=== PATIENT | female | born 1985 | race Caucasian/White ===

== ENCOUNTER 2023-02-07 17:31 | Emergency (ER) | payer BC ==
[2023-02-07] MEDS ORDERED: FAMOTIDINE 20 MG/2 ML VIAL IV ONE (17:57)
[2023-02-07] MEDS ORDERED: HYDROMORPHONE HCL 1 MG/ML INJ ONE ×2 (17:57→18:36)
[2023-02-07] MEDS ORDERED: NA CHLORIDE 0.9% 1,000 ML ONE (17:57)
[2023-02-07] MEDS ORDERED: ONDANSETRON 4 MG/2 ML VIAL ONE ×2 (17:57→19:50)
[2023-02-07 18:05] LABS: Absolute Lymphocytes (CBC) 3.4 K/uL (0.7-4.9); Hematocrit 43.5 % (36.0-45.0); Lymphocytes % 32.9 % (15.3-44.8); MCV 86.6 fL (80-100); MPV 7.5 fL (7.6-11.3); RBC Red Blood Cell Count 5.03 M/uL (3.86-4.86)
[2023-02-07 18:06] LABS: Specific Gravity 1.015 (1.005-1.030)
[2023-02-07 18:15] LABS: Specific Gravity 1.015 (1.005-1.030); Urine Bacteria None Seen /HPF (<20); Urine Bilirubin NEGATIVE (Negative); Urine Blood Negative (Negative); Urine Clarity Extremely Turbid (Clear); Urine Color Colorless (Yellow); Urine Glucose NEGATIVE (Negative); Urine Mucus Slight /HPF (None Seen); Urine Protein NEGATIVE (Negative); Urine Urobilinogen Normal (Normal)
[2023-02-07 18:25] LABS: Albumin 3.6 g/dL (3.4-5.0); Bilirubin Total 0.2 mg/dL (0.2-1.0); Potassium 3.4 mEq/L (3.5-5.1); Protein, Total 7.8 g/dL (6.4-8.2)
[2023-02-07] MEDS ORDERED: KETOROLAC 30 MG/ML INJ ONE (18:48)
--- NOTE | 2023-02-07 18:59 | RAD REPORT ---
EXAM DESCRIPTION: CT - Stone Protocol - 02/07/2023 6:50 pm CLINICAL HISTORY: Flank pain. FLANK PAIN COMPARISON: <Comparisons> TECHNIQUE: Axial images were obtained without oral or IV contrast. Lack of contrast limits solid org an and vascular assessment. The [id number] spans the entirety of the system partially obscuring uppermost abdomen and lung bases. Coronal reformatted images were obtained and reviewed. All CT scans are performed using dose optimization technique as appropriate and may include automated exposure control or mA/KV adjustment according to patient size. FINDINGS: The lower lung jerez are clear. Imaged portions of the liver and spleen show no suspicious findings on non-contrast imaging. The panc reas and adrenal glands are normal. No pathologic lymphadenopathy in the abdomen or pelvis. Cholelith iasis. 4 mm stone is seen at the right UVJ resulting in moderate right hydronephrosis and hydroureter. Addit ional bilateral nephrolithiasis seen. No bowel obstruction, free air, free fluid or abscess. Normal appendix noted. No significant bony abnormality. IMPRESSION: 4 mm stone right UVJ with moderate right hydronephrosis and hydroureter. Additional bilateral nephrolithiasis. Cholelithiasis.
[2023-02-07] MEDS ORDERED: MAGNESIUM SULFATE 1 gm IVPB 1 GM/100 ML BAG IV ONE (19:24)
[2023-02-07] MEDS ORDERED: TAMSULOSIN 0.4 MG SR CAP ONE (19:24)
[2023-02-07] MEDS ORDERED: CEFTRIAXONE 1000 MG/VIAL ONE (19:24)
--- NOTE | 2023-02-07 19:37 | EDPHYS ---
Physician Documentation [facility] Name: Mica Gerardo Age: 37 yrs Sex: Female : 1985 Arrival Date: 02/07/2023 Time: 17:31 Bed 20 Private MD: ED Physician Jack Alba HPI: 02/07 17:50 This 37 yrs old Female presents to ER via Ambulatory with complaints of Abdominal Pain. cp Historical: - Allergies: 17:58 No Known Allergies; ss - Immunization history:: Client reports having NOT received the Covid vaccine. - Social history:: Smoking status: Patient reports the use of cigarette tobacco products, smokes one-half pack cigarettes per day. ROS: 18:00 Constitutional: Negative for body aches, chills, fever. cp 18:00 : Positive for flank pain, of the right flank. cp 18:00 Eyes: Negative for injury, pain, redness, and discharge. cp 18:00 Cardiovascular: Negative for chest pain, palpitations. 18:00 Respiratory: Negative for cough, shortness of breath, wheezing. 18:00 Abdomen/GI: Positive for abdominal pain, nausea, of the posterior aspect of right lateral abdomen, anterior aspect of right lateral abdomen, right upper quadrant and right lower quadrant, Negative for vomiting, diarrhea, constipation. 18:00 Neuro: Negative for altered mental status, dizziness, headache, weakness. 18:00 All other systems are negative. Exam: 18:05 Constitutional: The patient appears in no acute distress, alert, awake, non-toxic, well cp developed, well nourished, in obvious pain, uncomfortable. 18:05 Head/Face: Normocephalic, atraumatic. cp 18:05 Eyes: Periorbital structures: appear normal, Conjunctiva: normal, no exudate, no injection, Sclera: no appreciated abnormality, Lids and lashes: appear normal, bilaterally. 18:05 ENT: External ear(s): are unremarkable, Nose: is normal, Mouth: Lips: moist, Oral mucosa: moist, Posterior pharynx: is normal, airway is patent, no erythema, no exudate. 18:05 Neck: ROM/movement: is normal, is supple, without pain, no range of motions limitations. 18:05 Chest/axilla: Inspection: normal. 18:05 Cardiovascular: Rate: normal, Rhythm: regular. 18:05 Respiratory: the patient does not display signs of respiratory distress, Respirations: normal, no use of accessory muscles, no retractions, labored breathing, is not present, Breath sounds: are clear throughout, no decreased breath sounds, no stridor, no wheezing. 18:05 Abdomen/GI: Inspection: abdomen appears normal, Bowel sounds: normal, in all quadrants, Palpation: soft, in all quadrants, severe abdominal tenderness, in the posterior aspect of right lateral abdomen, anterior aspect of right lateral abdomen, right upper quadrant and right lower quadrant, rebound tenderness, is not appreciated, voluntary guarding, is elicited in the posterior aspect of right lateral abdomen, anterior aspect of right lateral abdomen, right upper quadrant and right lower quadrant. 18:05 Neuro: Orientation: to person, place \T\ time. Mentation: is normal, Motor: moves all fours, strength is normal, Sensation: is normal. Vital Signs: 17:57 BP 145 / 47; Pulse 70; Resp 24; Temp 97.2(TE); Pulse Ox 100% on R/A; Weight 102.06 kg; ss Height 5 ft. 5 in. ; Pain 10/10; 18:17 BP 145 / 47; Pulse 53; Resp 16; Pulse Ox 100% on 2 lpm NC; Pain 2/10; sg5 18:22 Pain 9/10; sg5 19:30 BP 129 / 79; Pulse 52; Resp 17 S; Pulse Ox 100% on 1.5 lpm NC; aa9 17:57 Body Mass Index 37.44 (102.06 kg, 165.1 cm) ss 17:57 Pain Scale: Adult ss 18:17 Pain Scale: Adult sg5 18:22 Pain Scale: Adult sg5 MDM: 17:37 Patient medically screened. cp 19:29 ED course: Pain markedly improved with meds. cp 19:35 Data reviewed: vital signs, nurses notes, lab test result(s), radiologic studies, CT cp scan. 19:35 Differential diagnosis: cholecystitis, Cholelithiasis, non-specific abd pain, Ovarian cp Torsion, Pyelonephritis, Ureterolithiasis, urinary tract infection. Consideration of Admission/Observation Escalation of care including admission/observation considered. I considered the following discharge prescriptions or medication management in the emergency department Medications were administered in the Emergency Department. See MAR. Counseling: I had a detailed discussion with the patient and/or guardian regarding: the historical points, exam findings, and any diagnostic results supporting the discharge/admit diagnosis, radiology results, to return to the emergency department if symptoms worsen or persist or if there are any questions or concerns that arise at home. Response to treatment: the patient's symptoms have markedly improved after treatment. 02/07 17:43 Order name: CBC with Diff; Complete Time: 18:14 cp 02/07 18:14 Interpretation: Normal except: RBC 5.03; MPV 7.5. cp 02/07 17:43 Order name: CMP; Complete Time: 18:37 cp 02/07 18:37 Interpretation: Normal except: K 3.4; CL 112; CO2 20; GLUC 129; GFR 86; GLOB 4.2; A/G cp 0.9. 02/07 17:43 Order name: Lipase; Complete Time: 18:37 cp 02/07 17:43 Order name: Test, Urine cp 02/07 17:43 Order name: Urinalysis w/ reflexes; Complete Time: 18:24 cp 02/07 18:25 Interpretation: Normal except: [facility] Extremely Turbid; UPH 8.0; URBC 5-10. cp 02/07 17:43 Order name: CT Stone Protocol; Complete Time: 19:07 cp 02/07 17:43 Order name: IV Saline Lock; Complete Time: 18:00 cp 02/07 17:43 Order name: Labs collected and sent; Complete Time: 18:00 cp 02/07 19:34 Order name: PO challenge; Complete Time: 20:02 cp Administered Medications: 17:59 Drug: NS 0.9% IV 1000 ml Route: IV; Rate: 1 bolus; Site: right antecubital; sg5 17:59 Drug: Famotidine IVP 20 mg Route: IVP; Site: right antecubital; sg5 18:00 Drug: Ondansetron IVP 4 mg Route: IVP; Site: right antecubital; sg5 18:00 Drug: HYDROmorphone IVP 1 mg Route: IVP; Site: right antecubital; sg5 18:31 Drug: HYDROmorphone IVP 1 mg Route: IVP; Site: right antecubital; sg5 18:41 Drug: Ketorolac IVP 30 mg Route: IVP; Site: right antecubital; sg5 19:22 Drug: Rocephin IV 1 grams Route: IV; Rate: calculated rate; Site: right antecubital; aa9 20:03 Follow up: Response: No adverse reaction; IV Status: Completed infusion; IV Intake: [id number] 19:23 Drug: Flomax PO 0.4 mg Route: PO; aa9 20:03 Follow up: Response: No adverse reaction aa9 19:23 Drug: Magnesium Sulfate IVPB 1 grams Route: IVPB; Infused Over: 30 mins; Site: right aa9 antecubital; 20:03 Follow up: Response: No adverse reaction; IV Status: Completed infusion; IV Intake: aa9 100ml 19:44 Drug: Ondansetron IVP 4 mg Route: IVP; Site: right antecubital; aa9 20:03 Follow up: Response: No adverse reaction aa9 20:02 Drug: Potassium PO Effervescent Tablet 25 mEq Route: PO; aa9 20:03 Follow up: Response: No adverse reaction aa9 20:02 Drug: [place] PO 10 mg-325 mg 1 tabs Route: PO; aa9 20:03 Follow up: Response: No adverse reaction aa9 Disposition Summary: 02/07/23 19:36 Discharge Ordered Location: Home cp Problem: new cp Symptoms: have improved cp Condition: Stable cp Diagnosis - Calculus of kidney with calculus of ureter - right cp Followup: cp - With: Private Physician - When: 2 - 3 days - Reason: Recheck today's complaints Discharge Instructions: - Discharge Summary Sheet cp - Kidney Stones cp - Renal Colic cp Forms: - Medication Reconciliation Form cp - Thank You Letter cp - Antibiotic Education cp - Prescription Opioid Use cp Prescriptions: - Flomax 0.4 mg Oral capsule - take 1 capsule by ORAL route daily As needed; 7 capsule; Refills: 0, Product cp Selection Permitted - acetaminophen-codeine 300-30 mg Oral tablet - take 2 tablet by ORAL route every 6 to 8 hours as needed for pain; 16 tablet; cp Refills: 0, Product Selection Permitted - Zofran 4 mg Oral Tablet - take 1 tablet by ORAL route every 12 hours As needed; 20 tablet; Refills: 0, cp Product Selection Permitted Addendum: 02/09/2023 20:03 Co-signature as Attending Physician, Jack Alba MD I reviewed the patient's care r n provided by the Advanced Practice Provider and agree with the diagnosis and treatment plan. Signatures: Dispatcher [employer] Jack Nagel MD MD rn Blanchard, Shelby RN RN Reza Kingston PA PA cp Avalos, Aylin RN RN aa9 Jillian Meadows RN RN sg5
--- NOTE | 2023-02-07 19:37 | ER ---
Nurse's Notes [facility] Name: Mica Gerardo Age: 37 yrs Sex: Female : 1985 Arrival Date: 02/07/2023 Time: 17:31 Bed 20 Private MD: Diagnosis: Calculus of kidney with calculus of ureter-right Presentation: 02/07 17:57 Chief complaint: Patient states: R flank and lower abd pain that radiates down ss bilateral legs, began 30 minutes ago. Coronavirus screen: Client denies travel out of the [place] in the last 14 days. Ebola Screen: Patient denies exposure to infectious person. Patient denies travel to an Ebola-affected area in the 21 days before illness onset. Initial Sepsis Screen: Does the patient meet any 2 criteria? No. Patient's initial sepsis screen is negative. Does the patient have a suspected source of infection? No. Patient's initial sepsis screen is negative. Risk Assessment: Do you want to hurt yourself or someone else? Patient reports no desire to harm self or others. Onset of symptoms was February 07, 2023. 17:57 Method Of Arrival: Ambulatory ss 17:57 Acuity: RAISA 2 ss Historical: - Allergies: 17:58 No Known Allergies; ss - Immunization history:: Client reports having NOT received the Covid vaccine. - Social history:: Smoking status: Patient reports the use of cigarette tobacco products, smokes one-half pack cigarettes per day. Screenin:00 [facility] ED Fall Risk Assessment (Adult) History of falling in the last 3 months, sg5 including since admission No falls in past 3 months (0 pts). Abuse screen: Denies threats or abuse. Nutritional screening: No deficits noted. Tuberculosis screening: No symptoms or risk factors identified. Assessment: 18:00 General: Appears distressed, uncomfortable. Pain: Complains of pain in right flank, sg5 lower abdomen, bilateral legs. Neuro: Level of Consciousness is awake, alert, obeys commands, Oriented to person, place, time, situation, Appropriate for age. Cardiovascular: Capillary refill < 3 seconds Patient's skin is warm and dry. Respiratory: Airway is patent Trachea midline Respiratory effort is even, unlabored, Respiratory pattern is regular, symmetrical. GI: Abdomen is round non-distended, Bowel sounds present X 4 quads. Abd is soft X 4 quads. GI: Reports nausea. : Urine is cloudy. EENT: No signs and/or symptoms were reported regarding the EENT system. Derm: No signs and/or symptoms reported regarding the dermatologic system. Musculoskeletal: No signs and/or symptoms reported regarding the musculoskeletal system. 19:29 General: Appears uncomfortable, Behavior is calm, cooperative. Pain: Complains of pain aa9 in R flank Pain currently is 3 out of 10 on a pain scale. Neuro: Level of Consciousness is awake, alert, obeys commands, Oriented to person, place, time, situation. Respiratory: Airway is patent Respiratory effort is even, unlabored. GI: Abdomen is non-distended. : No signs and/or symptoms were reported regarding the genitourinary system. 19:33 Reassessment: pt ambulated to restroom independently. aa9 19:39 GI: Pt is actively vomiting undigested food, notified provider. aa9 20:02 Reassessment: Patient appears in no apparent distress at this time. Patient and/or aa9 family updated on plan of care and expected duration. Pain level reassessed. Patient is alert, oriented x 3, equal unlabored respirations, skin warm/dry/pink. Vital Signs: 17:57 BP 145 / 47; Pulse 70; Resp 24; Temp 97.2(TE); Pulse Ox 100% on R/A; Weight 102.06 kg; ss Height 5 ft. 5 in. ; Pain 10/10; 18:17 BP 145 / 47; Pulse 53; Resp 16; Pulse Ox 100% on 2 lpm NC; Pain 2/10; sg5 18:22 Pain 9/10; sg5 19:30 BP 129 / 79; Pulse 52; Resp 17 S; Pulse Ox 100% on 1.5 lpm NC; aa9 17:57 Body Mass Index 37.44 (102.06 kg, 165.1 cm) ss 17:57 Pain Scale: Adult ss 18:17 Pain Scale: Adult sg5 18:22 Pain Scale: Adult sg5 ED Course: 17:33 Patient arrived in ED. ts1 17:35 Jillian Meadows, ROSE is Primary Nurse. sg5 17:37 Reza Paula PA is PHCP. cp 17:37 Jack Alba MD is Attending Physician. cp 17:58 Triage completed. ss 17:58 Arm band placed on right wrist. ss 18:00 Patient has correct armband on for positive identification. Bed in low position. Call sg5 light in reach. Valuables Left with patient. 18:00 Inserted saline lock: 20 gauge in right antecubital area, using aseptic technique. sg5 Blood collected. 18:52 CT Stone Protocol In Process Unspecified. EDMS 20:02 Diet: Patient given water. Tolerated well. aa9 20:02 No provider procedures requiring assistance completed. IV discontinued, intact, aa9 bleeding controlled, No redness/swelling at site. Pressure dressing applied. Administered Medications: 17:59 Drug: NS 0.9% IV 1000 ml Route: IV; Rate: 1 bolus; Site: right antecubital; sg5 17:59 Drug: Famotidine IVP 20 mg Route: IVP; Site: right antecubital; sg5 18:00 Drug: Ondansetron IVP 4 mg Route: IVP; Site: right antecubital; sg5 18:00 Drug: HYDROmorphone IVP 1 mg Route: IVP; Site: right antecubital; sg5 18:31 Drug: HYDROmorphone IVP 1 mg Route: IVP; Site: right antecubital; sg5 18:41 Drug: Ketorolac IVP 30 mg Route: IVP; Site: right antecubital; sg5 19:22 Drug: Rocephin IV 1 grams Route: IV; Rate: calculated rate; Site: right antecubital; aa9 20:03 Follow up: Response: No adverse reaction; IV Status: Completed infusion; IV Intake: [id number] 19:23 Drug: Flomax PO 0.4 mg Route: PO; aa9 20:03 Follow up: Response: No adverse reaction aa9 19:23 Drug: Magnesium Sulfate IVPB 1 grams Route: IVPB; Infused Over: 30 mins; Site: right aa9 antecubital; 20:03 Follow up: Response: No adverse reaction; IV Status: Completed infusion; IV Intake: aa9 100ml 19:44 Drug: Ondansetron IVP 4 mg Route: IVP; Site: right antecubital; aa9 20:03 Follow up: Response: No adverse reaction aa9 20:02 Drug: Potassium PO Effervescent Tablet 25 mEq Route: PO; aa9 20:03 Follow up: Response: No adverse reaction aa9 20:02 Drug: [place] PO 10 mg-325 mg 1 tabs Route: PO; aa9 20:03 Follow up: Response: No adverse reaction aa9 Medication: 20:02 VIS not applicable for this client. aa9 Intake: 20:03 IV: 10ml; Total: 10ml. aa9 20:03 IV: 100ml; Total: 110ml. aa9 Output: 19:39 Gastric: 500ml (Emesis); Total: 500ml. aa9 Outcome: 19:36 Discharge ordered by . connor 20:02 Discharged to home via wheelchair. aa9 20:02 Condition: stable 20:02 Discharge instructions given to patient, Instructed on discharge instructions, follow up and referral plans. medication usage, Demonstrated understanding of instructions, follow-up care, medications, Prescriptions given X 3. 20:09 Patient left the ED. aa9 Signatures: Dispatcher [employer] EDMS Idania Campos RN RN ss Reza Paula, PA PA Elissa Ward RN RN aa9 Jillian Meadows RN RN sg5 Malu Fitzpatrick PAS PAS 1
[2023-02-07] MEDS ORDERED: POTASSIUM 25 MEQ EFFERV TAB ONE (19:50)
[2023-02-07] MEDS ORDERED: HYDROCODONE/APAP 10/325 TAB ONE (20:05)
[2023-02-07 20:18] VITALS: TEMP 97.2; O2SAT 100
[2023-02-07 20:23] VITALS: BP 129/79
== END 2023-02-07 20:09 | disposition home or self-care (01) ==
LOC: ER 17:31
DX: N20.2 Calculus of kidney with calculus of ureter (principal); F17.210 Nicotine dependence, cigarettes, uncomplicated
CPT/HCPCS: 96365; 85025; 81001; 36415; 81025; 83690; 80053; 76377; 74176; 96375; 99284; J3475; J1170 ×2; J2405 ×2; J7030; J0696